=== PATIENT | male | born 1940 | race Caucasian/White ===

== ENCOUNTER 2017-12-10 13:32 | Day surgery (SDC) | payer MEDICARE, BC ==
[~2017-12-10] VITALS: Ht 185.4 cm; Wt 81.6 kg
[2017-12-10] MEDS ORDERED: GLUC100017 PO (14:49)
[2017-12-10] MEDS ORDERED: COLC0.6T69 PO (14:49)
[2017-12-10] MEDS ORDERED: PSYL1PAC9 PO (14:49)
[2017-12-10] MEDS ORDERED: LISI-600 PO (14:49)
[2017-12-10] MEDS ORDERED: NITR0.4T48 SL (14:49)
[2017-12-10] MEDS ORDERED: ASPI-611 PO (14:49)
[2017-12-10] MEDS ORDERED: CHOL10002 PO (14:49)
[2017-12-10] MEDS ORDERED: UBID200C18 PO (14:49)
[2017-12-10] MEDS ORDERED: SIMV20TA5 PO (14:49)
[2017-12-10] MEDS ORDERED: METF10002 PO (14:49)
[2017-12-10] MEDS ORDERED: OMEP10CA4 PO (14:49)
[2017-12-10] MEDS ORDERED: CLOP75TA35 PO (14:49)
[2017-12-10] MEDS ORDERED: GLIM4TAB79 PO (14:49)
[2017-12-10] MEDS ORDERED: TAMS0.4C32 PO (14:49)
[2017-12-10 14:56] LABS: BASOPHILS % (AUTO) 0.3 % (0-1); EOSINOPHILS # (AUTO) 0.1 X10'3 (0-0.9); EOSINOPHILS % (AUTO) 1.9 % (0-6); LYMPHOCYTES % (AUTO) 30.2 % (21-51); MEAN CORPUSCULAR HEMOGLOBIN 32.6 PG (27.0-31.0); MEAN CORPUSCULAR HGB CONC 35.3 % (33.0-36.5); MEAN CORPUSCULAR VOLUME 92.3 FL (78-98); MEAN PLATELET VOLUME 8.7 FL (7.4-10.4); MONOCYTES # (AUTO) 0.4 X10'3 (0-0.9); MONOCYTES % (AUTO) 6.3 % (2-12); NEUTROPHILS # (AUTO) 4.1 X10'3 (1.8-7.7); NEUTROPHILS % (AUTO) 61.3 % (42-75); PRE OP HEMATOCRIT 42.9 % (42.0-52.0); PRE OP HEMOGLOBIN 15.1 g/dL (14.0-17.9); PRE OP PLATELET COUNT 143 X10'3 (140-440); RED BLOOD COUNT 4.64 X10'6 (4.70-6.10); RED CELL DISTRIBUTION WIDTH 12.6 % (11.5-14.5)
[2017-12-10 15:06] LABS: PRE OP PROTIME 10.8 SECONDS (9.0-12.0)
[2017-12-10 15:10] LABS: ALBUMIN/GLOBULIN RATIO 1.2 (1.1-1.5); ALKALINE PHOSPHATASE 74 IU/L (46-116); BLOOD UREA NITROGEN 19 MG/DL (7-18); BUN/CREATININE RATIO 17.9 (5.4-32.0); CALCIUM 9.4 MG/DL (8.5-10.1); CHLORIDE 102 MMOL/L (99-107); CREATININE 1.06 MG/DL (0.60-1.10); PRE OP ALT 22 U/L (30-65); PRE OP ANION GAP 8 (8-16); PRE OP AST 14 U/L (10-37); PRE OP BILIRUB, TOTAL 0.7 MG/DL (0.0-1.0); PRE OP GLUCOSE 109 MG/DL (70-104); PRE OP POTASSIUM 4.1 MMOL/L (3.4-5.1); PRE OP SODIUM 138 MMOL/L (135-145); TOTAL CARBON DIOXIDE 28.1 MMOL/L (24-32); TOTAL PROTEIN 7.3 G/DL (6.4-8.2); eGFR 68 ML/MIN
[2017-12-10 15:29] LABS: CLARITY,URINE Clear (Clear); COLOR,URINE Yellow (Yellow); GLUCOSE, URINE Negative (Neg); KETONES,URINE Negative (Neg); LEUKOCYTE ESTERASE ,URINE Negative (Neg); NITRITES, URINE Negative (Neg); OCCULT BLOOD,URINE Negative (Neg); PH,URINE 5.5 (4.8-8.0); PROTEIN,URINE Negative (Neg); UROBILINOGEN,URINE 0.2 E.U/dL (0.2-1.0)
[2017-12-10 15:35] LABS: UA COLLECTION TYPE CLN CATCH MIDSTREAM
[2017-12-16] MEDS ORDERED: ringers solution, lacted 1,000 ML IV SCH (05:00)
[2017-12-16] MEDS ORDERED: oxyCODONE SR 10mg (sust. release) tab PO ONE (05:30)
[2017-12-16] MEDS ORDERED: vancomycin inj 1,500 MG in normal saline 300ml IV soln IV ONE (05:30)
[2017-12-16] MEDS ORDERED: metoclopramide 5 mg/ml inj IV ONE (05:30)
[2017-12-16] MEDS ORDERED: cefazolin/dext.iso 2gm/50ml 50 ML IV ONE (05:30)
[2017-12-16] MEDS ORDERED: famotidine 20mg tablet PO ONE (05:30)
[2017-12-16] MEDS ORDERED: acetaminophen 325mg tablet PO ONE (05:30)
[2017-12-16] MEDS ORDERED: tranexamic acid inj. 1,000 MG in normal saline 100ml IV soln 90 ML IV ONE (05:30)
[2017-12-16] MEDS ORDERED: gabapentin 300mg capsule PO ONE (05:30)
== END 2017-12-10 23:59 | disposition home or self-care (01) ==
LOC: PRE-OP 13:32 → EDSTATUS 12-16 07:30
PROVIDERS: ATTEND Orthopaedic Surgery
DX: Z01.818 Encounter for other preprocedural examination (principal); M17.12 Unilateral primary osteoarthritis, left knee; I10 Essential (primary) hypertension; Z95.5 Presence of coronary angioplasty implant and graft; Z95.1 Presence of aortocoronary bypass graft; Z96.641 Presence of right artificial hip joint; Z90.49 Acquired absence of other specified parts of digestive tract; Z87.891 Personal history of nicotine dependence; Z79.82 Long term (current) use of aspirin; Z79.01 Long term (current) use of anticoagulants; Z79.84 Long term (current) use of oral hypoglycemic drugs; Z91.018 Allergy to other foods; Z79.899 Other long term (current) drug therapy
CPT/HCPCS: 36415; 80053; 81003; 83036; 85025; 85610; 85730; 87070

== ENCOUNTER 2017-12-15 12:47 | Inpatient (IN) | payer MEDICARE, BC ==
[2017-12-15] VITALS (7 sets, daily range): BP systolic 116–141; BP diastolic 59–83
[~2017-12-15] VITALS: Ht 177.8 cm; Wt 90.9 kg
[~2017-12-15 12:47] MED LIST: ASPI-611 PO; CHOL10002 PO; CLOP75TA35 PO; COLC0.6T69 PO; GLIM4TAB79 PO; GLUC100017 PO; LISI-600 PO; METF10002 PO; NITR0.4T48 SL; OMEP10CA4 PO; PSYL1PAC9 PO; SIMV20TA5 PO; TAMS0.4C32 PO; UBID200C18 PO
[2017-12-15 13:31] LABS: BASOPHILS % (AUTO) 0 % (0-1); EOSINOPHILS # (AUTO) 0.2 X10'3 (0-0.9); EOSINOPHILS % (AUTO) 1.6 % (0-6); HEMATOCRIT 41.5 % (42.0-52.0); HEMOGLOBIN 14.5 g/dl (14.0-17.9); LYMPHOCYTES # (AUTO) 0.6 X10'3 (1.1-4.8); LYMPHOCYTES % (AUTO) 6.6 % (21-51); MEAN CORPUSCULAR HEMOGLOBIN 32.5 PG (27.0-31.0); MEAN PLATELET VOLUME 8.8 FL (7.4-10.4); MONOCYTES # (AUTO) 0.3 X10'3 (0-0.9); MONOCYTES % (AUTO) 2.7 % (2-12); NEUTROPHILS # (AUTO) 8.7 X10'3 (1.8-7.7); NEUTROPHILS % (AUTO) 89.1 % (42-75); PLATELET COUNT 149 X10'3 (140-440); RED BLOOD COUNT 4.47 X10'6 (4.70-6.10); RED CELL DISTRIBUTION WIDTH 13.3 % (11.5-14.5); WHITE BLOOD COUNT 9.7 X10'3 (4.5-11.0)
[2017-12-15 13:38] LABS: INR 1.1 INR; PARTIAL THROMBOPLASTIN TIME 25 SECONDS (22-32); PROTHROMBIN TIME 11.1 SECONDS (9.0-12.0)
[2017-12-15 13:43] LABS: ALANINE AMINOTRANSFERASE 25 U/L (12-78); ALBUMIN 3.5 G/DL (3.4-5.0); ALBUMIN/GLOBULIN RATIO 1.1 (1.1-1.5); ALKALINE PHOSPHATASE 72 IU/L (46-116); ANION GAP 10 (8-16); ASPARTATE AMINO TRANSFERASE 73 U/L (10-37); BILIRUBIN,TOTAL 0.9 MG/DL (0.1-1.0); BLOOD UREA NITROGEN 25 MG/DL (7-18); BUN/CREATININE RATIO 22.9 (5.4-32.0); CALCIUM 8.8 MG/DL (8.5-10.1); CHLORIDE 99 MMOL/L (99-107); CREATININE 1.09 MG/DL (0.60-1.10); GLUCOSE 258 MG/DL (70-104); POTASSIUM 4.5 MMOL/L (3.5-5.1); SODIUM 136 MMOL/L (135-145); TOTAL PROTEIN 6.7 G/DL (6.4-8.2); eGFR 66 ML/MIN
[2017-12-15] MEDS ORDERED: morphine 2 MG/ML inj. syringe IV PRN ×2 (15:20)
[2017-12-15] MEDS ORDERED: mag hydrox/Alum hydrox/simeth 30ml oral suspension PO PRN (15:20)
[2017-12-15] MEDS ORDERED: ondansetron/PF 4mg/2ml inj IV PRN ×2 (15:20→23:00)
[2017-12-15] MEDS ORDERED: acetaminophen 325mg tablet PO PRN (15:20)
[2017-12-15] MEDS ORDERED: heparin 10,000 units/1 ML INJ IV ONE ×2 (15:20→18:05)
[2017-12-15] MEDS ORDERED: heparin 10,000 units/1 ML INJ IV PRN ×2 (15:20→18:05)
[2017-12-15] MEDS ORDERED: magnesium hydroxide 30ml (MOM) UD suspension PO PRN (15:20)
[2017-12-15] MEDS ORDERED: clopidogrel 300mg tablet PO ONE (17:15)
[2017-12-15] MEDS ORDERED: aspirin 81mg tab.chew PO ONE (17:15)
[2017-12-15] MEDS ORDERED: tirofiban 5mg in NS 100mL 100 ML IV SCH (19:00)
[2017-12-15] MEDS ORDERED: LIDOcaine 1%/PF (10mg/ml) 5ml vial ONE (19:30)
[2017-12-15] MEDS ORDERED: iohexol 350 MG/1 ML 200ml bottle ONE (19:31)
[2017-12-15] MEDS ORDERED: heparin 1,000unit/ml 10ml vial 10 ML ONE (20:17)
[2017-12-15] MEDS ORDERED: normal saline 1000ml 1,000 ML IV SCH (21:10)
[2017-12-15] MEDS ORDERED: HYDROcodone/acetaminophen 5mg/325mg tablet PO PRN (23:00)
[2017-12-15] MEDS ORDERED: HYDROcodone/acetaminophen 10/325mg tab PO PRN (23:00)
[2017-12-15] MEDS ORDERED: OXAZEpam 15mg capsule PO PRN (23:00)
[2017-12-15] MEDS ORDERED: nitroGLYCERIN 0.4mg SUBLingual tab SL PRN (23:00)
[2017-12-15] MEDS ORDERED: proCHLORperazine 10 MG/2 ml inj IV PRN (23:00)
[2017-12-15 23:27] LABS: PARTIAL THROMBOPLASTIN TIME 26 SECONDS (22-32)
[2017-12-16] MEDS: heparin 10,000 units/1 ML INJ IV PRN ×2 (01:04→16:07)
[2017-12-16 06:00] VITALS: BP 120/66
[2017-12-16 07:33] LABS: BASOPHILS % (AUTO) 0.2 % (0-1); EOSINOPHILS # (AUTO) 0.4 X10'3 (0-0.9); EOSINOPHILS % (AUTO) 3.9 % (0-6); HEMOGLOBIN 14.1 g/dl (14.0-17.9); LYMPHOCYTES # (AUTO) 1.5 X10'3 (1.1-4.8); LYMPHOCYTES % (AUTO) 14.9 % (21-51); MEAN CORPUSCULAR HEMOGLOBIN 32.6 PG (27.0-31.0); MEAN CORPUSCULAR HGB CONC 35.2 % (33.0-36.5); MEAN CORPUSCULAR VOLUME 92.7 FL (78-98); MEAN PLATELET VOLUME 9.3 FL (7.4-10.4); MONOCYTES # (AUTO) 0.6 X10'3 (0-0.9); MONOCYTES % (AUTO) 6.1 % (2-12); NEUTROPHILS # (AUTO) 7.3 X10'3 (1.8-7.7); NEUTROPHILS % (AUTO) 74.9 % (42-75); PLATELET COUNT 131 X10'3 (140-440); RED BLOOD COUNT 4.32 X10'6 (4.70-6.10); RED CELL DISTRIBUTION WIDTH 13.2 % (11.5-14.5); WHITE BLOOD COUNT 9.8 X10'3 (4.5-11.0)
[2017-12-16] MEDS: atorvastatin 10mg tablet PO SCH (09:10)
[2017-12-16] MEDS: lisinopril 20mg tablet PO SCH (09:10)
[2017-12-16] MEDS: clopidogrel 75mg tablet PO SCH (09:10)
[2017-12-16] MEDS: carVEDilol 3.125mg tablet PO SCH ×2 (09:10→19:27)
[2017-12-16 11:00] VITALS: BP 127/75
[2017-12-16 15:00] VITALS: BP 102/59
[2017-12-16 18:00] VITALS: BP 135/84
[2017-12-16 22:00] VITALS: BP 108/58
[2017-12-17 02:00] VITALS: BP 126/88
[2017-12-17 05:30] LABS: BASOPHILS # (AUTO) 0.1 X10'3 (0-0.2); BASOPHILS % (AUTO) 1.1 % (0-1); EOSINOPHILS # (AUTO) 0.2 X10'3 (0-0.9); EOSINOPHILS % (AUTO) 1.7 % (0-6); HEMATOCRIT 39.8 % (42.0-52.0); HEMOGLOBIN 13.8 g/dl (14.0-17.9); LYMPHOCYTES # (AUTO) 1.7 X10'3 (1.1-4.8); LYMPHOCYTES % (AUTO) 16.7 % (21-51); MEAN CORPUSCULAR HEMOGLOBIN 32.7 PG (27.0-31.0); MEAN CORPUSCULAR HGB CONC 34.6 % (33.0-36.5); MEAN CORPUSCULAR VOLUME 94.3 FL (78-98); MEAN PLATELET VOLUME 9.8 FL (7.4-10.4); MONOCYTES # (AUTO) 0.7 X10'3 (0-0.9); MONOCYTES % (AUTO) 7.4 % (2-12); NEUTROPHILS # (AUTO) 7.3 X10'3 (1.8-7.7); NEUTROPHILS % (AUTO) 73.1 % (42-75); PLATELET COUNT 115 X10'3 (140-440); RED BLOOD COUNT 4.22 X10'6 (4.70-6.10); RED CELL DISTRIBUTION WIDTH 12.8 % (11.5-14.5); WHITE BLOOD COUNT 9.9 X10'3 (4.5-11.0)
[2017-12-17 06:00] VITALS: BP 117/68
[2017-12-17] MEDS: heparin 10,000 units/1 ML INJ IV PRN (06:45)
[2017-12-17 07:29] LABS: ANION GAP 10 (8-16); BLOOD UREA NITROGEN 15 MG/DL (7-18); BUN/CREATININE RATIO 18.1 (5.4-32.0); CHLORIDE 100 MMOL/L (99-107); CREATININE 0.83 MG/DL (0.60-1.10); GLUCOSE 209 MG/DL (70-104); POTASSIUM 3.8 MMOL/L (3.5-5.1); SODIUM 136 MMOL/L (135-145); TOTAL CARBON DIOXIDE 26.1 MMOL/L (24-32)
[2017-12-17 07:30] LABS: ALANINE AMINOTRANSFERASE 40 U/L (12-78); ALBUMIN/GLOBULIN RATIO 0.9 (1.1-1.5); ALKALINE PHOSPHATASE 63 IU/L (46-116); ASPARTATE AMINO TRANSFERASE 156 U/L (10-37); CALCIUM 8.4 MG/DL (8.5-10.1); TOTAL PROTEIN 6.3 G/DL (6.4-8.2); eGFR 90 ML/MIN
[2017-12-17] MEDS: clopidogrel 75mg tablet PO SCH (07:58)
[2017-12-17] MEDS: atorvastatin 10mg tablet PO SCH (07:58)
[2017-12-17] MEDS: lisinopril 20mg tablet PO SCH (07:58)
[2017-12-17] MEDS: carVEDilol 3.125mg tablet PO SCH (07:58)
[2017-12-17] MEDS ORDERED: aspirin 81mg tablet.DR PO SCH (08:00)
[2017-12-17] MEDS ORDERED: COR3.125T PO (08:25)
== END 2017-12-17 10:26 | disposition home or self-care (01) | DRG 250 ==
LOC: ER 12:49 → ED HOLD 15:17 → EDBEDREQ 17:16 → CMPBEDREQ 20:13 → PCU 3S 21:40
PROVIDERS: ADMIT Internal Medicine; ATTEND Internal Medicine
PROC: 4A023N7 Measurement of Cardiac Sampling and Pressure, Left Heart, Percutaneous Approach (ICD-10-PCS; principal; 2017-12-15)
PROC: 02703ZZ Dilation of Coronary Artery, One Artery, Percutaneous Approach (ICD-10-PCS; 2017-12-15)
PROC: B2111ZZ Fluoroscopy of Multiple Coronary Arteries using Low Osmolar Contrast (ICD-10-PCS; 2017-12-15)
PROC: B2151ZZ Fluoroscopy of Left Heart using Low Osmolar Contrast (ICD-10-PCS; 2017-12-15)
PROC: B2131ZZ Fluoroscopy of Multiple Coronary Artery Bypass Grafts using Low Osmolar Contrast (ICD-10-PCS; 2017-12-15)
PROC: 02C13ZZ Extirpation of Matter from Coronary Artery, Two Arteries, Percutaneous Approach (ICD-10-PCS; 2017-12-15)
PROC: B2181ZZ Fluoroscopy of Left Internal Mammary Bypass Graft using Low Osmolar Contrast (ICD-10-PCS; 2017-12-15)
DX: T82.868A Thrombosis due to vascular prosthetic devices, implants and grafts, initial encounter (principal); I21.4 Non-ST elevation (NSTEMI) myocardial infarction; E11.9 Type 2 diabetes mellitus without complications; I08.1 Rheumatic disorders of both mitral and tricuspid valves; I25.5 Ischemic cardiomyopathy; E78.00 Pure hypercholesterolemia, unspecified; E78.5 Hyperlipidemia, unspecified; I25.10 Atherosclerotic heart disease of native coronary artery without angina pectoris; I10 Essential (primary) hypertension; M10.9 Gout, unspecified; M19.90 Unspecified osteoarthritis, unspecified site; N40.0 Benign prostatic hyperplasia without lower urinary tract symptoms; Y83.2 Surgical operation with anastomosis, bypass or graft as the cause of abnormal reaction of the patient, or of later complication, without mention of misadventure at the time of the procedure; Z90.49 Acquired absence of other specified parts of digestive tract; Z95.5 Presence of coronary angioplasty implant and graft; Z79.899 Other long term (current) drug therapy; Z79.82 Long term (current) use of aspirin; Z86.73 Personal history of transient ischemic attack (TIA), and cerebral infarction without residual deficits; Y92.89 Other specified places as the place of occurrence of the external cause
CPT/HCPCS: 36415; 71045; 80053; 84484; 85025; 85610; 85730; 87070; 92920; 93005; 93306; 93458; 99285; A4620; A6257; C1725; C1757; C1760; C1769; J1644; J2001; J3246; J7030; Q9967

== ENCOUNTER 2018-06-09 05:25 | Inpatient (IN) | payer MEDICARE, BC ==
[2018-06-01 15:40] LABS: BASOPHILS % (AUTO) 0.5 % (0-1); EOSINOPHILS # (AUTO) 0.1 X10'3 (0-0.9); EOSINOPHILS % (AUTO) 1.8 % (0-6); LYMPHOCYTES # (AUTO) 2.1 X10'3 (1.1-4.8); LYMPHOCYTES % (AUTO) 32.9 % (21-51); MEAN CORPUSCULAR HEMOGLOBIN 31.7 PG (27.0-31.0); MEAN CORPUSCULAR HGB CONC 34.4 % (33.0-36.5); MEAN CORPUSCULAR VOLUME 91.9 FL (78-98); MEAN PLATELET VOLUME 9.4 FL (7.4-10.4); MONOCYTES # (AUTO) 0.5 X10'3 (0-0.9); MONOCYTES % (AUTO) 7.3 % (2-12); NEUTROPHILS # (AUTO) 3.6 X10'3 (1.8-7.7); NEUTROPHILS % (AUTO) 57.5 % (42-75); PRE OP HEMATOCRIT 42.9 % (42.0-52.0); PRE OP HEMOGLOBIN 14.8 g/dL (14.0-17.9); PRE OP PLATELET COUNT 135 X10'3 (140-440); RED BLOOD COUNT 4.67 X10'6 (4.70-6.10); RED CELL DISTRIBUTION WIDTH 13.3 % (11.5-14.5)
[2018-06-01 15:56] LABS: ALBUMIN 3.9 G/DL (3.4-5.0); ALBUMIN/GLOBULIN RATIO 1.1 (1.1-1.5); ALKALINE PHOSPHATASE 75 IU/L (46-116); BLOOD UREA NITROGEN 22 MG/DL (7-18); BUN/CREATININE RATIO 21.4 (5.4-32.0); CALCIUM 9.7 MG/DL (8.5-10.1); CHLORIDE 103 MMOL/L (99-107); CREATININE 1.03 MG/DL (0.60-1.10); PRE OP ALT 14 U/L (30-65); PRE OP ANION GAP 8 (8-16); PRE OP AST 11 U/L (10-37); PRE OP BILIRUB, TOTAL 0.7 MG/DL (0.0-1.0); PRE OP GLUCOSE 162 MG/DL (70-104); PRE OP POTASSIUM 4.3 MMOL/L (3.4-5.1); PRE OP SODIUM 138 MMOL/L (135-145); TOTAL CARBON DIOXIDE 26.7 MMOL/L (24-32); TOTAL PROTEIN 7.5 G/DL (6.4-8.2); eGFR 70 ML/MIN
[2018-06-02 11:44] LABS: CLARITY,URINE Clear (Clear); COLOR,URINE Yellow (Yellow); GLUCOSE, URINE >=1000 mg/dl (Neg); KETONES,URINE Negative (Neg); LEUKOCYTE ESTERASE ,URINE Negative (Neg); NITRITES, URINE Negative (Neg); OCCULT BLOOD,URINE Negative (Neg); PROTEIN,URINE Negative (Neg)
[2018-06-02 11:46] LABS: UA COLLECTION TYPE NON-SPECIFIED
[2018-06-02 11:56] LABS: MUCUS STRANDS FEW /LPF (Neg); SQUAMOUS EPITHELIAL CELL,UR MODERATE /LPF (FEW)
[2018-06-02 12:00] LABS: BACTERIA,URINE NONE SEEN /HPF (Neg); RBC,URINE 0-2 /HPF (0-2); WBC,URINE 0-4 /HPF (0-4)
[2018-06-09] VITALS (26 sets, daily range): BP systolic 12–158; BP diastolic 54–105
[~2018-06-09] VITALS: Ht 188 cm; Wt 85.1 kg
[~2018-06-09 05:25] MED LIST changes: +CARV3.122 PO; -CLOP75TA35 PO; +ISOS60TA4 PO; -METF10002 PO; +METF10004 PO; +ringers solution, lacted 1,000 ML IV SCH
[2018-06-09] MEDS ORDERED: tranexamic acid inj. 1,000 MG in normal saline 100ml IV soln 90 ML IV ONE (05:30)
[2018-06-09] MEDS ORDERED: famotidine 20mg tablet PO ONE (05:30)
[2018-06-09] MEDS ORDERED: oxyCODONE SR 10mg (sust. release) tab -2 tabs (20mg) PO ONE (05:30)
[2018-06-09] MEDS ORDERED: DOCUMENT DATE & TIME OF BETA-BLOCKER PO ONE (05:30)
[2018-06-09] MEDS ORDERED: vancomycin inj 1,500 MG in normal saline 300ml IV soln IV ONE (05:30)
[2018-06-09] MEDS ORDERED: metoclopramide 5 mg/ml inj IV ONE (05:30)
[2018-06-09] MEDS ORDERED: gabapentin 300mg capsule PO ONE (05:30)
[2018-06-09] MEDS ORDERED: Cefazolin 2GM/50ML dext iso,osmotic IVPB IV ONE (05:30)
[2018-06-09] MEDS ORDERED: acetaminophen 325mg tablet PO ONE (05:30)
[2018-06-09] MEDS ORDERED: LIDOcaine 1% (10mg/ml) 2ml vial ONE (05:40)
[2018-06-09] MEDS ORDERED: ketorolac trometh. 30mg/ml inj. ONE (06:37)
[2018-06-09] MEDS ORDERED: vancomycin 1,000mg inj ONE (06:37)
[2018-06-09] MEDS ORDERED: ceFAZolin 1000mg inj ONE (06:38)
[2018-06-09] MEDS ORDERED: epiNEPHrine 1 mg/ml inj ONE (07:00)
[2018-06-09] MEDS ORDERED: morphine 10mg/ml inj. ONE (07:00)
[2018-06-09] MEDS ORDERED: ROPIVAcaine 0.5% (5mg/ml) 30ml vial ONE ×2 (07:01→07:22)
[2018-06-09] MEDS ORDERED: cloNIDine hcl/PF 100mcg/ml inj ONE (07:22)
[2018-06-09] MEDS ORDERED: BUPIVAcaine/PF 7.5mg/ml (0.75%) 10ml vial ONE (07:22)
[2018-06-09] MEDS ORDERED: tetracaine 1% (10mg/ml) pres. free inj. ONE (07:23)
[2018-06-09] MEDS ORDERED: MIDAZolam 1mg/ml 10ml vial ONE (07:26)
[2018-06-09] MEDS ORDERED: fentaNYL/PF 50MCG/1 ML 2ML syringe ONE (07:26)
[2018-06-09] MEDS ORDERED: morphine /PF 1mg/ml 10ml inj. ONE (07:26)
[2018-06-09] MEDS ORDERED: ringers solution, lacted 1,000 ML IV SCH ×2 (07:33→12:25)
[2018-06-09] MEDS ORDERED: fentaNYL/PF 50MCG/1 ML 2ML syringe IV PRN ×2 (07:35)
[2018-06-09] MEDS ORDERED: ondansetron/PF 4mg/2ml inj IV PRN ×4 (07:35→12:25)
[2018-06-09] MEDS ORDERED: hydrALAZINE 20mg/ml inj. IV PRN (07:35)
[2018-06-09] MEDS ORDERED: morphine 4 MG/ML inj SYRINge IV PRN ×2 (07:35)
[2018-06-09] MEDS ORDERED: labetalol 20mg/4ml (5mg/ml) syringe IV PRN (07:35)
[2018-06-09] MEDS ORDERED: diphenhydrAMINE 50 mg/ml inj IV PRN (09:20)
[2018-06-09] MEDS ORDERED: Thrombin (Bovine) 5,000 unit vial TP ONE (09:45)
[2018-06-09] MEDS ORDERED: acetaminophen 325mg tablet PO PRN (11:05)
[2018-06-09] MEDS ORDERED: HYDROmorphone 1 mg/ml syringe IV PRN ×2 (11:05)
[2018-06-09] MEDS ORDERED: magnesium hydroxide 30ml (MOM) UD suspension PO PRN (11:05)
[2018-06-09] MEDS ORDERED: oxyCODONE IR 5mg (immed. release) tablet PO PRN (11:05)
[2018-06-09] MEDS ORDERED: diphenhydrAMINE 25mg capsule PO PRN ×2 (11:05)
[2018-06-09] MEDS ORDERED: bisacodyl 10mg suppository rectal RC PRN (11:05)
[2018-06-09] MEDS ORDERED: scopolamine 1.5mg patch.TD72 TD ONE ×2 (12:10→12:25)
[2018-06-09] MEDS ORDERED: proCHLORperazine 10 MG/2 ml inj IV PRN ×2 (12:25)
[2018-06-09] MEDS ORDERED: proMETHazine 25mg rectal suppository RC PRN ×2 (12:25)
[2018-06-09] MEDS: acetaminophen 325mg tablet PO SCH ×2 (14:00→19:50)
[2018-06-09] MEDS ORDERED: PSYLLIUM HUSK PO SCH (14:20)
[2018-06-09] MEDS ORDERED: colchicine 0.6mg tablet PO PRN (14:20)
[2018-06-09] MEDS ORDERED: nitroGLYCERIN 0.4mg SUBLingual tab SL PRN (14:20)
[2018-06-09] MEDS ORDERED: [UNRECOGNIZED DRUG - OTHER] PO SCH (14:20)
[2018-06-09] MEDS: gabapentin 300mg capsule PO SCH ×2 (14:39→20:33)
[2018-06-09] MEDS: potassium cl 20mEq in 1/2 NS 1,000 ML IV SCH ×2 (14:39→16:09)
[2018-06-09] MEDS: ceFAZolin 1GM/D5W- ADD-VANTAGE 50 ML IV SCH (16:10)
[2018-06-09] MEDS: metFORMIN 500mg tablet PO SCH (17:12)
[2018-06-09] MEDS: carVEDilol 3.125mg tablet PO SCH (19:49)
[2018-06-09] MEDS ORDERED: METFORMIN HCL 1000 MG PO SCH (20:00)
[2018-06-09] MEDS ORDERED: vancomycin/NS 1 GM ADD-VANTAGE 250 ML IV SCH (20:00)
[2018-06-09] MEDS: atorvastatin 10mg tablet PO SCH (20:33)
[2018-06-09] MEDS: sennosides 8.6mg tablet PO SCH (20:34)
[2018-06-09] MEDS ORDERED: non-formulary drug (Simvastatin* (Zocor*) 20 MG) PO SCH (21:00)
[2018-06-09] MEDS ORDERED: non-formulary drug (Isosorbide Mononitrate (Isosorbide Mononitrate Er) 1 TAB) PO SCH (21:00)
[2018-06-10] MEDS: ceFAZolin 1GM/D5W- ADD-VANTAGE 50 ML IV SCH (00:17)
[2018-06-10] MEDS: potassium cl 20mEq in 1/2 NS 1,000 ML IV SCH ×3 (01:41→19:04)
[2018-06-10] MEDS: acetaminophen 325mg tablet PO SCH ×4 (01:42→20:08)
[2018-06-10 02:19] VITALS: BP 112/70
[2018-06-10] MEDS: oxyCODONE IR 5mg (immed. release) tablet PO PRN ×2 (05:27→15:16)
[2018-06-10 06:00] VITALS: BP 120/69
[2018-06-10 06:09] LABS: BASOPHILS % (AUTO) 0.1 % (0-1); EOSINOPHILS # (AUTO) 0.1 X10'3 (0-0.9); EOSINOPHILS % (AUTO) 1.4 % (0-6); HEMATOCRIT 40.6 % (42.0-52.0); HEMOGLOBIN 13.9 g/dl (14.0-17.9); LYMPHOCYTES # (AUTO) 1.5 X10'3 (1.1-4.8); MEAN CORPUSCULAR HEMOGLOBIN 31.9 PG (27.0-31.0); MEAN CORPUSCULAR HGB CONC 34.3 % (33.0-36.5); MEAN PLATELET VOLUME 9.3 FL (7.4-10.4); MONOCYTES # (AUTO) 0.9 X10'3 (0-0.9); MONOCYTES % (AUTO) 8.9 % (2-12); NEUTROPHILS # (AUTO) 7.6 X10'3 (1.8-7.7); NEUTROPHILS % (AUTO) 74.6 % (42-75); PLATELET COUNT 130 X10'3 (140-440); RED BLOOD COUNT 4.37 X10'6 (4.70-6.10); RED CELL DISTRIBUTION WIDTH 14.1 % (11.5-14.5); WHITE BLOOD COUNT 10.2 X10'3 (4.5-11.0)
[2018-06-10 06:21] LABS: ANION GAP 9 (8-16); CHLORIDE 96 MMOL/L (99-107); POTASSIUM 4.4 MMOL/L (3.5-5.1); SODIUM 132 MMOL/L (135-145)
[2018-06-10] MEDS: pantoprazole 40mg Tablet.DR PO SCH (07:50)
[2018-06-10] MEDS: metFORMIN 500mg tablet PO SCH ×2 (07:50→17:40)
[2018-06-10] MEDS: tamsulosin 0.4mg capsule PO SCH (07:50)
[2018-06-10] MEDS: gabapentin 300mg capsule PO SCH ×3 (07:51→20:09)
[2018-06-10] MEDS: carVEDilol 3.125mg tablet PO SCH ×2 (07:51→20:08)
[2018-06-10] MEDS: enoxaparin 40mg/0.4ml syringe SQ SCH (07:51)
[2018-06-10] MEDS: vitamin D (cholecalciferol) 1,000 unit tablet PO SCH (07:51)
[2018-06-10] MEDS: lisinopril 20mg tablet PO SCH (07:51)
[2018-06-10] MEDS ORDERED: non-formulary drug (Cholecalciferol (Vitamin D3) (Vitamin D3) 1 TAB) PO SCH (08:00)
[2018-06-10 10:00] VITALS: BP 119/83
[2018-06-10 18:00] VITALS: BP 148/70
[2018-06-10] MEDS: atorvastatin 10mg tablet PO SCH (20:07)
[2018-06-10] MEDS: sennosides 8.6mg tablet PO SCH (20:08)
[2018-06-10] MEDS: celeCOXIB 100mg capsule PO SCH (20:09)
[2018-06-10] MEDS ORDERED: isosorbide mononitrate 30mg tab.SR.24H PO SCH (21:00)
[2018-06-10 22:00] VITALS: BP 121/67
[2018-06-11] MEDS: oxyCODONE IR 5mg (immed. release) tablet PO PRN ×3 (00:16→11:33)
[2018-06-11] MEDS: acetaminophen 325mg tablet PO SCH ×2 (02:00→07:17)
[2018-06-11 06:00] VITALS: BP 137/85
[2018-06-11 06:50] LABS: BASOPHILS % (AUTO) 0.2 % (0-1); EOSINOPHILS # (AUTO) 0.1 X10'3 (0-0.9); EOSINOPHILS % (AUTO) 1.4 % (0-6); HEMATOCRIT 32.7 % (42.0-52.0); HEMOGLOBIN 11.1 g/dl (14.0-17.9); LYMPHOCYTES # (AUTO) 1.2 X10'3 (1.1-4.8); LYMPHOCYTES % (AUTO) 15.2 % (21-51); MEAN CORPUSCULAR HEMOGLOBIN 31.4 PG (27.0-31.0); MEAN CORPUSCULAR HGB CONC 33.9 % (33.0-36.5); MEAN CORPUSCULAR VOLUME 92.7 FL (78-98); MEAN PLATELET VOLUME 9.6 FL (7.4-10.4); MONOCYTES # (AUTO) 0.9 X10'3 (0-0.9); MONOCYTES % (AUTO) 10.6 % (2-12); NEUTROPHILS # (AUTO) 5.9 X10'3 (1.8-7.7); NEUTROPHILS % (AUTO) 72.6 % (42-75); PLATELET COUNT 105 X10'3 (140-440); RED BLOOD COUNT 3.53 X10'6 (4.70-6.10); RED CELL DISTRIBUTION WIDTH 13.6 % (11.5-14.5); WHITE BLOOD COUNT 8.1 X10'3 (4.5-11.0)
[2018-06-11] MEDS: gabapentin 300mg capsule PO SCH ×2 (07:15→13:00)
[2018-06-11] MEDS: vitamin D (cholecalciferol) 1,000 unit tablet PO SCH (07:16)
[2018-06-11] MEDS: pantoprazole 40mg Tablet.DR PO SCH (07:16)
[2018-06-11] MEDS: celeCOXIB 100mg capsule PO SCH (07:16)
[2018-06-11] MEDS: tamsulosin 0.4mg capsule PO SCH (07:16)
[2018-06-11] MEDS: carVEDilol 3.125mg tablet PO SCH (07:16)
[2018-06-11] MEDS: lisinopril 20mg tablet PO SCH (07:16)
[2018-06-11] MEDS: metFORMIN 500mg tablet PO SCH (07:16)
[2018-06-11] MEDS: enoxaparin 40mg/0.4ml syringe SQ SCH (07:17)
[2018-06-11 10:00] VITALS: BP 104/57
[2018-06-11] MEDS ORDERED: psyllium seed 3.4 gm packet PO SCH (11:00)
[2018-06-11] MEDS ORDERED: acetaminophen 325mg tablet PO PRN (11:05)
== END 2018-06-11 14:41 | disposition home health service (06) | DRG 470 ==
LOC: PAS IN 05:25 → EDSTATUS 07:30 → ORTHO 4S 13:09
PROVIDERS: ADMIT Orthopaedic Surgery; ATTEND Orthopaedic Surgery
PROC: 8E0Y0CZ Robotic Assisted Procedure of Lower Extremity, Open Approach (ICD-10-PCS; 2018-06-09)
PROC: 3E0T3BZ Introduction of Anesthetic Agent into Peripheral Nerves and Plexi, Percutaneous Approach (ICD-10-PCS; 2018-06-09)
PROC: 0SRD069 Replacement of Left Knee Joint with Oxidized Zirconium on Polyethylene Synthetic Substitute, Cemented, Open Approach (ICD-10-PCS; principal; 2018-06-09 07:34)
DX: M17.12 Unilateral primary osteoarthritis, left knee (principal); D62 Acute posthemorrhagic anemia; E11.9 Type 2 diabetes mellitus without complications; E78.5 Hyperlipidemia, unspecified; I10 Essential (primary) hypertension; I25.10 Atherosclerotic heart disease of native coronary artery without angina pectoris; K21.9 Gastro-esophageal reflux disease without esophagitis; N40.0 Benign prostatic hyperplasia without lower urinary tract symptoms; Z79.899 Other long term (current) drug therapy; Z86.73 Personal history of transient ischemic attack (TIA), and cerebral infarction without residual deficits; Z91.018 Allergy to other foods; Z95.1 Presence of aortocoronary bypass graft; I25.2 Old myocardial infarction; Z95.5 Presence of coronary angioplasty implant and graft; Z90.49 Acquired absence of other specified parts of digestive tract; Z79.82 Long term (current) use of aspirin; Z79.84 Long term (current) use of oral hypoglycemic drugs
CPT/HCPCS: 0232T; 36415; 80051; 80053; 81001; 82948; 85025; 87070; 97116; 97162; 97530; A6255; A6257; A6258; A6455; A7000; C1713; C1758; C1776; J0171; J0360; J0690; J0735; J0780; J1650; J1885; J2250; J2270; J2274; J2405; J2765; J2795; J3010; J3370; J3490; J7030; J7120